=== PATIENT | male | born 1995 | race American Indian/Alaskan Native ===

== ENCOUNTER 2016-11-04 10:15 | Outpatient (CLI) | payer MEDICAID ==
[2016-11-04 10:43] LABS: Hematocrit 43.4 % (35.5-45.6); Hemoglobin 14.1 gm/dl (11.8-15.2); Mean Corpuscular HGB Conc 33 % (32-34); Mean Corpuscular Hemoglobin 28 pg (28-32); Mean Corpuscular Volume 84 fl (84-94); Platelet Count 262 K/mm3 (140-440); Red Blood Count 5.14 M/mm3 (3.65-5.03); Red Cell Distribution Width 12.3 % (13.2-15.2); White Blood Count 5.3 K/mm3 (4.5-11.0)
[2016-11-04 10:59] LABS: Alanine Aminotransferase 14 units/L (7-56); Albumin 4.6 g/dL (3.9-5); Albumin/Globulin Ratio 1.4 %; Alkaline Phosphatase 82 units/L (35-129); Anion Gap 18 mmol/L; BUN/Creatinine Ratio 6.25; Bilirubin,Total 0.6 mg/dL (0.1-1.2); Blood Urea Nitrogen 5 mg/dL (9-20); Calcium 9.4 mg/dL (8.4-10.2); Carbon Dioxide 26 mmol/L (22-30); Cholesterol 166 mg/dL (50-199); Glucose 81 mg/dL (75-100); HDL Cholesterol 53 mg/dL (40-59); LDL Cholesterol,Direct 96 mg/dL (50-130); Potassium 3.6 mmol/L (3.6-5.0); Sodium 141 mmol/L (137-145); Triglycerides 88 mg/dL (2-149)
[2016-11-04 11:38] LABS: Anisocytosis Few; Basophils % (Manual) 0 % (0.0-1.8); Blastocytes % (Manual) 0 %; Diff Status Complete; Large Platelets Rare; Platelet Estimate Consistent w Auto
== END 2016-11-04 10:16 | disposition home or self-care (01) ==
LOC: LAB 10:15
PROVIDERS: ATTEND Psychiatry & Neurology Child & Adolescent Psychiatry
DX: F84.0 Autistic disorder (principal); F63.81 Intermittent explosive disorder; F90.2 Attention-deficit hyperactivity disorder, combined type; F70 Mild intellectual disabilities
CPT/HCPCS: 36415; 80053; 80061; 84146; 84443; 85007; 85025